=== PATIENT | female | born 1980 | race Caucasian/White ===

== ENCOUNTER 2023-11-20 19:11 | Emergency (ER) | payer OTHER, SELFPAY ==
[2023-11-20 19:23] VITALS: BP 172/108
[2023-11-20 20:44] VITALS: BMI 26.5
[2023-11-20 21:30] VITALS: BP 126/39
--- NOTE | 2023-11-20 22:29 | ED.GENMED ---
History of Present Illness
General
Chief Complaint: Extremity Pain (non-traumatic)
Source: patient
Exam Limitations: none
Time Seen by Provider: 11/20/23 19:56
Nursing documentation reviewed up to this point in time: agreed with
Travel History
Have you had any contact with someone who has COVID-19?: No
Do you have any symptoms of coronavirus? Fever > 100 degrees, chills, cough, shortness of breath, sore throat, loss of taste or smell, muscle aches, or headache?: No
History of Present Illness
History of Present Illness:
43-year-old female past medical history of IBS and migraines presenting to the emergency department today with concerns of discomfort on her left leg over the past week or so after hard workout also had spasm to the leg she noticed increasing
discomfort behind her left knee and was concerned of a blood clot which prompted come to the ER denies any chest pain shortness of breath or history of blood clots.
Past History
Past History
ED Past Medical History: None and Other (Anxiety, stone in the left renal pelvis)
ED Past Surgical History: None
Social History
Tobacco: Non-smoker
Personal:
Living: with family
Employment: Employed
Family History
Family History: Diabetes
Review of Systems
Review of Systems
Allergies reviewed?: Yes
All Other Systems: ROS reviewed and negative except as documented in HPI and ROS
Phy Exam
Physical Exam
Physical Exam:
GENERAL: Alert , in no apparent distress
EYE: pupils equal and reactive
NECK: Supple, no significant adenopathy.
ENT: o/p clr, mmm.
CARDIAC: Regular rate and rhythm .
LUNGS: Clear breath sounds bilaterally, no acute respiratory distress, no wheezes/rales/rhonchi
ABDOMEN: Soft, without focal tenderness, no r/g, no cvat
NEUROLOGICAL: Alert and oriented, no focal neuro deficits
SKIN: Warm and dry, skin intact.
MUSCULOSKELETAL: Good range of motion of the lower extremity bilaterally no edema, well perfused.
PSYCH: Normal and appropriate interaction.
Course
Orders/Labs/Results
Orders:
Orders
11/20/23 20:14
Venous Doppler Lwr Ext Left [US Periph Venous LOWER Ext LT] Urgent
Comment:
Reason For Exam: leg pain swelling mainly behind knee
11/20/23 22:29
Sai Wrap Left-Treatment ONCE
Vital Signs
Initial and Last Documented VS:
Initial Vital Signs
Temp Pulse Resp BP Pulse Ox
97.8 F 104 22 172/108 100
11/20/23 19:23 11/20/23 19:23 11/20/23 19:23 11/20/23 19:23 11/20/23 19:23
Last Documented Vital Signs
Temp Pulse Resp BP Pulse Ox
97.8 F 104 22 172/108 100
11/20/23 19:23 11/20/23 19:23 11/20/23 19:23 11/20/23 19:23 11/20/23 19:23
MDM/Problems Addressed
MDM/Problems Addressed:
43-year-old female presenting to the emergency department today with concerns of left knee discomfort and sensation of swelling behind her left knee. Normal distal pulses generally well-appearing. Patient was concerned of DVT. Ultrasound was
ordered that did not show evidence of DVT. Patient with no emergent findings otherwise no redness or warmth no signs of infection stable for outpatient follow-up. Knee wrapped with Sai bandage.
*Critical Care Note
Total Time (30-74mins, 75-104mins- exclusive of procedures): Not Applicable
ED Attending Note
-
Portions of this chart may have been created with voice recognition software.� Occasional wrong word or��sound alike� substitutions may have occurred due to the inherent limitations of voice recognition software.
Discharge Plan
Departure
Patient Disposition: Home (Routine Discharge)
Date of Disposition: 11/20/23
Time of Disposition: 22:31
Patient with high blood pressure during this ER visit?: No
Covid-19: Not Applicable
Discharge Problem:
Knee sprain
Instructions: Muscle and Bone Pain (DC)
Prescriptions:
New
methylprednisolone [Methylpred DP] 4 mg tablets,dose pack
See Rx Instructions .ROUTE .COMPLEX Qty: 21 0RF
Rx Instructions:
for 6 days
No Action
ascorbic acid-ascorbate sodium 500 MG wafer
1,000 mg PO DAILY
Patient Comments:
Pt has decided to stop taking this med
Isiah.acidoph, angelaasei,B. lactis 1 EACH capsule
1 ea PO DAILY
Demanos Powder
1 dose PO DAILY
Referrals:
Quita Navarro MD [Family Provider] -
Activity Restrictions/Additional Instructions:
You came to the emergency department today with concerns of knee discomfort. Here your ultrasound was normal. Please follow closely as an outpatient. Return to the emergency department for any worsening, new or concerning symptoms.
Interventions
Interventions:
*Risk Screen - Suicide Last Done: 11/20/23 19:23
*General Assessment Last Done: 11/20/23 20:43
*Neglect/Abuse Screening Last Done: 11/20/23 19:23
ED- Fall Risk Assessment Last Done: 11/20/23 21:00
*ED COVID-19 Vaccine History Last Done: 11/20/23 20:43
ED-Skin Assessment Last Done: 11/20/23 21:00
ED-Peripheral Vascular Assessment Last Done: 11/20/23 21:00
ED-Musculoskeletal Assessment Last Done: 11/20/23 20:41
Discharge Date and Time
Print Language: ALGERIAN
== END 2023-11-20 22:41 | disposition home or self-care (01) ==
LOC: EMR 19:11
PROVIDERS: EMERGENCY PHYSICIAN Emergency Medicine; FAMILY PHYSICIAN Family Medicine
DX: S83.92XA Sprain of unspecified site of left knee, initial encounter (principal); X58.XXXA Exposure to other specified factors, initial encounter; Y93.B9 Activity, other involving muscle strengthening exercises; M79.605 Pain in left leg; M62.838 Other muscle spasm; K58.9 Irritable bowel syndrome, unspecified; G43.909 Migraine, unspecified, not intractable, without status migrainosus; F41.9 Anxiety disorder, unspecified; Z87.442 Personal history of urinary calculi; Z86.16 Personal history of COVID-19
CPT/HCPCS: 99284; 93971

== ENCOUNTER 2024-01-10 07:14 | Emergency (ER) | payer OTHER, SELFPAY ==
[2024-01-10] VITALS (8 sets, daily range): BP systolic 132–147; BP diastolic 90–99
--- NOTE | 2024-01-10 08:40 | ED.GENMED ---
History of Present Illness
General
Chief Complaint: Back Pain
Source: patient
Exam Limitations: none
Time Seen by Provider: 01/10/24 08:07
Nursing documentation reviewed up to this point in time: agreed with
History of Present Illness
History of Present Illness:
Patient is a 43-year-old female presents to the ER for evaluation. Around 2 months ago patient started with bilateral leg pain and weak sensation in her legs after a spin class. She normally spends daily and this class was not harder or any
different than her typical classes. She also had some mild low back pain discomfort. She had seen an local neurologist to ordered a C-spine MRI and MRI of the brain. She reports the C-spine showed certain herniated disks the MRI of the brain was
normal she initially was ordered an EMG but they wanted to hold off on that. She presents today because over the past several days she has had muscle twitching in her lower extremities worse on the left side. She reports her left leg feels very
hypersensitive. She does feel slight weakess in legs. She denies any bowel or bladder incontinence. Denies any fever or chills.
Past History
Past History
ED Past Medical History: None and Other (Anxiety, stone in the left renal pelvis)
ED Past Surgical History: None
Social History
Tobacco: Non-smoker
Personal:
Living: with family
Employment: Employed
Family History
Family History: Diabetes
Review of Systems
Review of Systems
Allergies reviewed?: Yes
All Other Systems: ROS reviewed and negative except as documented in HPI and ROS
Constitutional: Denies fever
Respiratory: Reports no symptoms
Cardiac: Reports no symptoms
ABD/GI: Reports no symptoms
: Denies incontinence
Musculoskeletal: Reports back pain (low back feels sore )
Skin: Reports no symptoms
Neurological: Reports other (muscle twitching in legs worse on left ; left leg feels slight weak but able to bear weight )
Psychiatric: Reports no symptoms
Phy Exam
General Physical Exam
General Presentation: well appearing
General age: appears stated age
General Skin: warm and dry
General Habitus: normal
General Mental: alert
General Hydration: appears well hydrated
Neurological Exam
Neurological Exam: alert, oriented x3, no motor deficits, no sensory deficits and other (reflexes appear slightly hyper-reflexive )
Musculoskeletal Exam
Musculoskeletal Exam: full ROM
Psychiatric Exam
Psychiatric Exam: normal mood/affect
Course
Orders/Labs/Results
Orders:
Orders
01/10/24 09:07
MR Lumbar Without Contrast Urgent
Comment:
Reason For Exam: leg weakness
OK for patient to be off Cardiac Monitoring for MRI: Yes
Recent pill cam endoscopy?: No
01/10/24 09:15
Test Result ONCE
01/10/24 09:17
Test Result ONCE
01/10/24 09:24
CMP [Comprehensive Metabolic Panel] Urgent
Complete Blood Count/With Diff Urgent
HCG, Serum Qualitative Screen Urgent
Magnesium Urgent
Abnormal Lab Results
01/10/24
09:24
MPV 11.7 H fL
(7.4-10.4)
Absolute Neuts (auto) 7.4 H 10^3/uL
(1.4-6.5)
Absolute Monos (auto) 0.8 H 10^3/uL
(0.1-0.6)
Lymphocytes % 16.5 L %
(20.5-51.1)
Creatinine 0.5 L mg/dL
(0.6-1.0)
Glucose 110 H mg/dl
(70-99)
Calcium 10.3 H mg/dl
(8.4-10.2)
01/10/24 09:24
01/10/24 09:24
Vital Signs
Initial and Last Documented VS:
Initial Vital Signs
Temp Pulse Resp BP Pulse Ox
98.4 F 101 16 132/99 98
01/10/24 07:16 01/10/24 07:16 01/10/24 07:16 01/10/24 07:16 01/10/24 07:16
Last Documented Vital Signs
Temp Pulse Resp BP Pulse Ox
98.4 F 90 16 132/90 99
01/10/24 07:16 01/10/24 12:06 01/10/24 12:06 01/10/24 12:06 01/10/24 12:06
MDM/Problems Addressed
Differential Diagnosis Includes:
not limited to: herniated disc, paresthesias, other considerations include ALS MS
MDM/Problems Addressed:
Patient is a 43-year-old female who presents to the ER for evaluation. Patient has had as documented some back discomfort and like to for the past several months. Evaluated by family doctor and neurologist had a brain MRI and a C-spine MRI but
never had a lumbar MRI. She has had some weakness sensation in her legs greater on the left and twitching. She reports her legs do not feel right. On exam she seems mildly hyperreflexic however normal station normal dorsiflexion plantarflexion no
obvious weakness on exam. I did speak with neurology, DR Reyna who recommended Lumbar mri.
MRI reviewed no concerning findings however will need outpatient follow-up. She does have a neurologist appointment but not until January. I did recommend that she call her neurologist to try to get an earlier appointment. In addition she has a
primary care physician appointment directly after leaving here. She does feel very anxious she is actually going there to get on anxiety medication. I did review with patient that there is no concerning findings here in the ER she does need
outpatient workup for further evaluation of her symptoms. She however is in no acute distress with a normal neurologic sign.
*Radiology
Radiology exam reviewed: radiology read reviewed
*Pulse Oximetry
Patient hypoxic: no
*Critical Care Note
Total Time (30-74mins, 75-104mins- exclusive of procedures): Not Applicable
ED Attending Note
-
Portions of this chart may have been created with voice recognition software.� Occasional wrong word or��sound alike� substitutions may have occurred due to the inherent limitations of voice recognition software.
Discharge Plan
Departure
Patient Disposition: Home (Routine Discharge)
Date of Disposition: 01/10/24
Time of Disposition: 12:14
Patient with high blood pressure during this ER visit?: Yes
Condition: Fair
Covid-19: Not Applicable
Discharge Problem:
paresthesias
Instructions: Paresthesia (DC), BLOOD PRESSURE
Prescriptions:
No Action
ascorbic acid-ascorbate sodium 500 MG wafer
1,000 mg PO DAILY
Patient Comments:
Pt has decided to stop taking this med
L.acidoph, paracasei,B. lactis 1 EACH capsule
1 ea PO DAILY
Demanos Powder
1 dose PO DAILY
methylprednisolone [Methylpred DP] 4 mg tablets,dose pack
See Rx Instructions .ROUTE .COMPLEX Qty: 21 0RF
Rx Instructions:
for 6 days
Referrals:
Quita Navarro MD [Family Provider] -
Activity Restrictions/Additional Instructions:
As discussed follow-up with your family doctor today in addition follow-up with your neurologist please call to give you earlier appointment. Follow-up for additional testing that your neurologist had recommended return if any worsening of
symptoms
Interventions
Interventions:
*Risk Screen - Suicide Last Done: 01/10/24 07:26
*General Assessment Last Done: 01/10/24 07:26
*Neglect/Abuse Screening Last Done: 01/10/24 07:26
ED- Fall Risk Assessment Last Done: 01/10/24 07:27
*ED COVID-19 Vaccine History Last Done: 01/10/24 07:26
*Nursing Disposition Last Done: 01/10/24 12:24
ED-Musculoskeletal Assessment Last Done: 01/10/24 07:26
Discharge Date and Time
Discharge Date/Time: 01/10/24 12:25
Print Language: PERUVIAN
[2024-01-10 09:41] LABS: HCG, Serum Qualitative Screen Negative
[2024-01-10 09:46] LABS: ALT (SGPT) 18 U/L (0-35); AST (SGOT) 21 U/L (14-36); Alkaline Phosphatase 51 U/L (38-126); Blood Urea Nitrogen 8 mg/dl (7-17); Calcium 10.3 mg/dl (8.4-10.2); Carbon Dioxide 28 mmol/L (22-30); Chloride 102 mmol/L (98-107); Glucose 110 mg/dl (70-99); Magnesium 1.7 mg/dl (1.6-2.3); Potassium 3.8 mmol/L (3.5-5.1); Sodium 140 mmol/L (135-145); Total Bilirubin 0.7 mg/dl (0.2-1.3); Total Protein 7.8 g/dl (6.3-8.2); eGFR > 60.00
[2024-01-10 11:08] LABS: % Basophils 0.4 % (0-2); % Eosinophils 0.1 % (0-6); % Immature Granulocytes 0.2 % (0-0.5); % Lymphocytes 16.5 % (20.5-51.1); % Monocytes 8.2 % (1.7-9.3); % Neutrophils 74.6 % (42.2-75.2); Absolute Lymphocytes 1.6 10^3/uL (1.2-3.4); Absolute Monocytes 0.8 10^3/uL (0.1-0.6); Absolute Neutrophils 7.4 10^3/uL (1.4-6.5); Hematocrit 40.4 % (37.0-47.0); Hemoglobin 13.9 g/dL (12.0-16.0); Mean Corp Hgb Conc. 34.4 g/dL (33.0-37.0); Mean Corpuscular Volume 90.2 fL (81.0-99.0); Mean Platelet Volume 11.7 fL (7.4-10.4); Nucleated Red Blood Cells % 0 %; Platelet Count 348 10^3/uL (130-400); Red Blood Cell Count 4.48 10^6/uL (4.20-5.40); Red Cell Dist. Width 12.2 % (11.5-14.5); White Blood Cell Count 9.9 10^3/uL (4.8-10.8)
== END 2024-01-10 12:25 | disposition home or self-care (01) ==
LOC: EMR 07:14
PROVIDERS: Nurse Practitioner; EMERGENCY PHYSICIAN Student in an Organized Health Care Education/Training Program; FAMILY PHYSICIAN Family Medicine
DX: R20.2 Paresthesia of skin (principal); R53.1 Weakness; R25.3 Fasciculation; M54.50 Low back pain, unspecified; M79.605 Pain in left leg; M79.604 Pain in right leg; F41.9 Anxiety disorder, unspecified; R03.0 Elevated blood-pressure reading, without diagnosis of hypertension; Z91.041 Radiographic dye allergy status
CPT/HCPCS: 99284; 72148; 80053; 83735; 84703; 85025

== ENCOUNTER 2024-02-01 15:33 | Emergency (ER) | payer OTHER, SELFPAY ==
[2024-02-01 15:35] VITALS: BP 166/107
--- NOTE | 2024-02-01 16:05 | ED.GENMED ---
History of Present Illness
General
Chief Complaint: Musculo-Skeletal Complaint
Time Seen by Provider: 02/01/24 16:05
History of Present Illness
History of Present Illness:
HPI: Patient presents with increasing gait dysfunction, leg discomfort bilaterally. She is also reported muscle fasciculations and has trouble sleeping. She was recently placed on Ativan. She takes an SSRI for anxiety. She states she has been
seen by a neurologist who has been dismissing her symptoms.
EXAM: GENERAL: Well appearing in no distress
HEENT: Moist oral mucosa
CARDIOVASCULAR: No murmurs, normal heart rate, regular rhythm, No chest wall tenderness
PULMONARY: No respiratory distress, breath sounds are clear and equal
ABDOMEN: Soft with no peritoneal signs, no tenderness
NEUROLOGIC: Excellent strength all extremities, no coordination deficits, her gait was tested and she did fairly well
PSYCHIATRIC: Appropriate mental status, normal insight and judgement
EXTREMITIES: Nontender, no edema, moves all extremities equally
SKIN: No rash, no lesions
TIME OF INITIAL ENCOUNTER: 4:20 PM
NUMBER AND COMPLEXITY OF PROBLEMS ADDRESSED AT THE ENCOUNTER
� Chronic conditions affecting care: Anxiety, IBS, migraines
� Acute Exacerbation and/or Progression of Chronic Illness: This is an acute problem
� Differential Diagnosis includes: Anxiety, MS, Guillain-Rea�, spine pathology unlikely given relatively unremarkable recent MRIs
AMOUNT AND/OR COMPLEXITY OF DATA TO BE REVIEWED AND ANALYZED
� I performed an independent evaluation of and my interpretation is:
EKG:
CT:
X-rays:
Laboratory Studies: CBC and chemistries unremarkable, CRP and CK normal
Other:
� Review of other/old records: The patient was seen here less than 1 month ago with paresthesias. I reviewed these notes which indicated the patient started having bilateral leg pain in October. She had a brain and C-spine. Brain
MRI reportedly normal and C-spine MRI showed some disc disease MRI. MRI of the L-spine was obtained when she was here less than a month ago.
� Clinical information was obtained by an independent historian: I spoke to at bedside
� Prescriptions/Medications Considered but not given:
� Further testing considered but not performed:
RISK OF COMPLICATIONS AND/OR MORBIDITY OR MORTALITY OF PATIENT MANAGEMENT
� Social determinants of health affecting care: Lives at home with family
� Discussion with other providers:
� Escalation of care including admission/observation vs risk of discharge considered: Suspect component of anxiety as a contributing factor for her symptoms which include insomnia, blepharospasm, muscle fasciculations. However,
she does report some gait dysfunction however gait currently is relatively unremarkable. Unclear etiology of patient's symptoms. However she would like to proceed with trying a very low-dose of a steroid which I feel would be reasonable to at
least try as she has not been improving on her own.
Past History
Past History
ED Past Medical History: None and Other (Anxiety, stone in the left renal pelvis)
ED Past Surgical History: None
Social History
Tobacco: Non-smoker
Personal:
Living: with family
Employment: Employed
Family History
Family History: Diabetes
Phy Exam
Physical Exam
Physical Exam:
See HPI
Course
Orders/Labs/Results
Orders:
Orders
02/01/24 15:47
Alcohol Urgent
C-Reactive Protein Urgent
Comment: ADD ON
Complete Blood Count/With Diff Urgent
Comprehensive Metabolic Panel Urgent
Creatine Phosphokinase Urgent
Comment: ADD ON
02/01/24 16:28
Add On- LAB Urgent
Tests Added?: ck AND cRP
Abnormal Lab Results
02/01/24
15:47
MPV 10.8 H fL
(7.4-10.4)
Absolute Neuts (auto) 8.1 H 10^3/uL
(1.4-6.5)
Absolute Monos (auto) 0.7 H 10^3/uL
(0.1-0.6)
Lymphocytes % 17.8 L %
(20.5-51.1)
Creatinine 0.5 L mg/dL
(0.6-1.0)
Glucose 129 H mg/dl
(70-99)
Calcium 10.6 H mg/dl
(8.4-10.2)
02/01/24 15:47
02/01/24 15:47
Vital Signs
Initial and Last Documented VS:
Initial Vital Signs
Temp Pulse Resp BP Pulse Ox
98.8 F 112 18 166/107 99
02/01/24 15:35 02/01/24 15:35 02/01/24 15:35 02/01/24 15:35 02/01/24 15:35
Last Documented Vital Signs
Temp Pulse Resp BP Pulse Ox
98.8 F 80 16 116/85 100
02/01/24 15:35 02/01/24 18:30 02/01/24 18:30 02/01/24 18:30 02/01/24 18:30
*Critical Care Note
Total Time (30-74mins, 75-104mins- exclusive of procedures): Not Applicable
ED Attending Note
-
Portions of this chart may have been created with voice recognition software.� Occasional wrong word or��sound alike� substitutions may have occurred due to the inherent limitations of voice recognition software.
Discharge Plan
Departure
Prescriptions:
No Action
ascorbic acid-ascorbate sodium 500 MG wafer
1,000 mg PO DAILY
Patient Comments:
Pt has decided to stop taking this med
L.acidoph, paracasei,B. lactis 1 EACH capsule
1 ea PO DAILY
Demanos Powder
1 dose PO DAILY
methylprednisolone [Methylpred DP] 4 mg tablets,dose pack
See Rx Instructions .ROUTE .COMPLEX Qty: 21 0RF
Rx Instructions:
for 6 days
Referrals:
Quita Navarro MD [Family Provider] -
Interventions
Interventions:
*Risk Screen - Suicide Last Done: 02/01/24 15:35
*General Assessment Last Done: 02/01/24 15:35
*Neglect/Abuse Screening Last Done: 02/01/24 15:35
ED-Musculoskeletal Assessment Last Done: 02/01/24 16:38
Discharge Date and Time
Print Language: NEPALESE
[2024-02-01 16:15] LABS: ALT (SGPT) 30 U/L (0-35); AST (SGOT) 32 U/L (14-36); Alkaline Phosphatase 49 U/L (38-126); Blood Urea Nitrogen 11 mg/dl (7-17); Calcium 10.6 mg/dl (8.4-10.2); Carbon Dioxide 25 mmol/L (22-30); Chloride 101 mmol/L (98-107); Glucose 129 mg/dl (70-99); Potassium 3.8 mmol/L (3.5-5.1); Sodium 138 mmol/L (135-145); Total Bilirubin 0.7 mg/dl (0.2-1.3); eGFR > 60.00
[2024-02-01 16:29] LABS: Hematocrit 40.3 % (37.0-47.0); Hemoglobin 14.1 g/dL (12.0-16.0); Mean Corpuscular Hgb 30.5 pg (27.0-31.0); Mean Corpuscular Volume 87.2 fL (81.0-99.0); Mean Platelet Volume 10.8 fL (7.4-10.4); Platelet Count 379 10^3/uL (130-400); Red Blood Cell Count 4.62 10^6/uL (4.20-5.40); Red Cell Dist. Width 12.4 % (11.5-14.5); White Blood Cell Count 10.8 10^3/uL (4.8-10.8)
[2024-02-01 16:43] LABS: % Basophils 0.4 % (0-2); % Eosinophils 0.3 % (0-6); % Immature Granulocytes 0.3 % (0-0.5); % Lymphocytes 17.8 % (20.5-51.1); % Neutrophils 75.2 % (42.2-75.2); Absolute Lymphocytes 1.9 10^3/uL (1.2-3.4); Absolute Monocytes 0.7 10^3/uL (0.1-0.6); Absolute Neutrophils 8.1 10^3/uL (1.4-6.5); Nucleated Red Blood Cells % 0 %
[2024-02-01 18:08] LABS: Creatine Phosphokinase 96 U/L (30-135)
[2024-02-01 18:12] LABS: Alcohol None Detected
[2024-02-01 18:30] VITALS: BP 116/85
[2024-02-01 18:36] LABS: C-Reactive Protein < 5.00 mg/L (0.0-10.00)
== END 2024-02-01 19:03 | disposition home or self-care (01) ==
LOC: EMR 15:33
PROVIDERS: Student in an Organized Health Care Education/Training Program; EMERGENCY PHYSICIAN Emergency Medicine; FAMILY PHYSICIAN Family Medicine
DX: M79.10 Myalgia, unspecified site (principal); F41.9 Anxiety disorder, unspecified
CPT/HCPCS: 99283; 80053; 82077; 82550; 85025; 86140